=== PATIENT | female | born 1980 | race Caucasian/White ===

== ENCOUNTER 2016-11-05 05:36 | Day surgery (SDC) | payer BC, OTHER ==
[~2016-11-05] VITALS: Ht 157.5 cm; Wt 64.3 kg
[~2016-11-05 05:36] MED LIST: ALBU8.5H3 INH; LEVO88TA PO
[2016-11-05 06:51] VITALS: Ht 157.5 cm; Wt 64.3 kg
[2016-11-05] MEDS ORDERED: FLUT9.9S NASAL (07:02)
[2016-11-05] MEDS ORDERED: LORA10CA PO (07:02)
[2016-11-05 07:26] VITALS: BP 123/72; PULSE 81; RESP 16
[2016-11-05] MEDS ORDERED: FENTAnyl 50 MCG/ML VIAL ONE (07:46)
[2016-11-05] MEDS ORDERED: MIDAZOLAM 1 MG/ML 2 ML INJ ONE ×3 (07:47)
[2016-11-05 08:05] VITALS: BP 102/60; PULSE 74; RESP 12
--- NOTE | 2016-11-30 08:26 | GILP ---
DATE OF PROCEDURE: 11/05/2016 SURGEON: Liliya Pérez MD PROCEDURE PERFORMED: Esophagogastroduodenoscopy and biopsy. POSTOPERATIVE DIAGNOSES: 1. Abdominal pain. 2. Chronic heartburn. POSTOPERATIVE DIAGNOSES: 1. Hiatal hernia. 2. Gastroesophageal reflux disease. 3. Gastritis with erosions. 4. Gastric mucosal biopsies were taken for Helicobacter pylori test. INDICATION: The patient is an 86-year-old female who had upper abdominal pain and chronic heartburn, not responding to therapy. The patient was scheduled for endoscopy examination for further evaluation. The procedure and possible complications were well-explained to the patient. She understood and consented to the procedure. DESCRIPTION OF PROCEDURE: Under the influence of fentanyl and Versed, the upper endoscope was carefully introduced into the esophagus and under direct vision it was advanced to the stomach, into the pylorus, into the duodenal bulb and descending duodenum. FINDINGS: Esophagus: The patient had hiatal hernia and gastroesophageal reflux disease. Stomach: The patient had gastritis with erosions. Gastric mucosal biopsies were taken for H pylori. Duodenum was normal. The patient tolerated the procedure very well, and there was no complication from the procedure. At the end of the procedures she was awake, with stable vital signs and she was discharged home to the care of her family. IMPRESSION: 1. Hiatal hernia. 2. Gastroesophageal reflux disease. 3. Gastritis with erosions. 4. Gastric mucosal biopsies were taken for Helicobacter pylori test PLAN: 1. Pantoprazole 40 mg orally every morning. 2. Await H pylori test report. Dictated By: MD DELANO Avery/batsheva/[email or web address] /Document#: [id number] CC: Liliya Pérez MD;*[facility]*
== END 2016-11-05 11:49 | disposition home or self-care (01) ==
LOC: GIL 05:36
PROVIDERS: ATTEND Internal Medicine Gastroenterology
DX: K21.9 Gastro-esophageal reflux disease without esophagitis (principal); K44.9 Diaphragmatic hernia without obstruction or gangrene; K29.70 Gastritis, unspecified, without bleeding; E03.9 Hypothyroidism, unspecified
CPT/HCPCS: 43239; 87081; J2250; J3010